=== PATIENT | female | born 1985 | race Caucasian/White ===

== ENCOUNTER 2019-07-17 09:06 | Emergency (ER) | payer BC ==
[2019-07-17 09:16] VITALS: BP 126/80; PULSE 81; TEMP 98.9
[2019-07-17 09:48] LABS: COLLECTION METHOD CLEAN CATCH
[2019-07-17 10:03] LABS: MUCOUS Present /lpf; PH 6 (5-8); URINE APPEARANCE Hazy; URINE BACTERIA Rare /hpf; URINE BILIRUBIN Negative (NEGATIVE); URINE BLOOD Negative (NEGATIVE); URINE COLOR Yellow; URINE GLUCOSE Negative (NEGATIVE); URINE KETONE Negative (NEGATIVE); URINE LEUKOCYTE ESTERASE 2+ (NEGATIVE); URINE NITRATE Negative (NEGATIVE); URINE PROTEIN(semi-quant) Negative (NEGATIVE); URINE RBC 0-2 /hpf; URINE UROBILINOGEN Negative (NEGATIVE)
[2019-07-17 10:21] LABS: BASO % 0.2 % (0.0-2.0); EOS # 0.1 (0.0-0.7); EOS % 1.3 % (0-4.0); GRAN # 6.1 (1.4-6.5); HEMATOCRIT 40.4 % (37.0-47.0); HEMOGLOBIN 12.5 g/dl (12.5-16.0); LYMPH # 1.4 (1.2-3.4); LYMPH % 17.4 % (20.0-51.0); MEAN CELL VOLUME 83 fl (80.0-100.0); MEAN CORPUSCULAR HEMOGLOBIN 26 pg (27.0-31.0); MEAN CORPUSCULAR HGB CONC 31 g/dl (33.0-37.0); MONO # 0.6 (0.1-0.6); MONO % 6.7 % (1.7-9.3); PLATELET COUNT 253 K/mm3 (130-400); RED BLOOD COUNT 4.85 M/mm3 (4.10-5.30)
[2019-07-17 10:37] LABS: ALBUMIN 4.1 gm/dL (3.5-5.0); BILIRUBIN,TOTAL 0.4 mg/dL (0.0-1.0); C-REACTIVE PROTEIN 1.1 mg/dL (0.0-0.9); CALCIUM 9.1 mg/dL (8.4-10.2); CREATININE, serum 0.67 (0.52-1.25); POTASSIUM 4.3 mmol/L (3.4-5.0); TOTAL PROTEIN 7.5 gm/dL (6.4-8.2)
[2019-07-17] MEDS ORDERED: CEPHALEXIN500 M1 PO (11:09)
== END 2019-07-17 11:35 | disposition home or self-care (01) ==
LOC: COL.ER 09:06
PROVIDERS: Emergency Medicine
DX: R10.11 Right upper quadrant pain (principal)
CPT/HCPCS: J1885

== ENCOUNTER 2020-06-01 18:20 | Emergency (ER) | payer BC ==
[~2020-06-01] VITALS: Ht 165.1 cm; Wt 134.1 kg
[~2020-06-01 18:20] MED LIST: CEPHALEXIN500 M1 PO
[2020-06-01 18:24] VITALS: TEMP 99.2
[2020-06-01 21:28] VITALS: BP 114/70; PULSE 78
== END 2020-06-01 21:28 | disposition home or self-care (01) ==
LOC: COL.ER 18:20
DX: O9A.212 Injury, poisoning and certain other consequences of external causes complicating pregnancy, second trimester (principal); S43.004A Unspecified dislocation of right shoulder joint, initial encounter; Z3A.21 21 weeks gestation of pregnancy; W01.0XXA Fall on same level from slipping, tripping and stumbling without subsequent striking against object, initial encounter; Y92.512 Supermarket, store or market as the place of occurrence of the external cause
CPT/HCPCS: J1170; J2704; J7030

== ENCOUNTER 2020-07-09 12:06 | Emergency (ER) | payer BC ==
[~2020-07-09] VITALS: Ht 165.1 cm; Wt 136.4 kg
[2020-07-09 12:15] VITALS: TEMP 97.8
[2020-07-09 12:57] LABS: ARTERIAL BLD GAS O2 SATURATION 89.5 % (92-100); ARTERIAL BLOOD GAS BASE EXCESS -2.8 (-2-2); ARTERIAL BLOOD GAS HCO3 20.1 meq/L (22-26); ARTERIAL BLOOD GAS PCO2 29.9 mmHg (35-45); ARTERIAL BLOOD GAS PO2 56.9 mmHg (80-100); ARTERIAL BLOOD GAS pH 7.45 (7.35-7.45)
[2020-07-09 13:28] LABS: BASO # 0.1 (0.0-0.2); BASO % 0.4 % (0.0-2.0); EOS # 0.2 (0.0-0.7); EOS % 1.3 % (0-4.0); GRAN # 13.2 (1.4-6.5); GRAN % 83.5 % (42.2-75.2); HEMATOCRIT 39.6 % (37.0-47.0); HEMOGLOBIN 12.4 g/dl (12.5-16.0); LYMPH # 1.4 (1.2-3.4); LYMPH % 8.6 % (20.0-51.0); MEAN CELL VOLUME 87 fl (80.0-100.0); MEAN CORPUSCULAR HEMOGLOBIN 27 pg (27.0-31.0); MEAN CORPUSCULAR HGB CONC 31 g/dl (33.0-37.0); MEAN PLATELET VOLUME 11.2 fl (7.4-10.4); MONO # 0.8 (0.1-0.6); MONO % 5.2 % (1.7-9.3); PLATELET COUNT 192 K/mm3 (130-400); RED BLOOD COUNT 4.56 M/mm3 (4.10-5.30); REDCELL DISTRIBUTION WIDTH-CV 15.1 % (11.5-14.5)
[2020-07-09 13:39] LABS: ALBUMIN 3.4 gm/dL (3.5-5.0); BILIRUBIN,TOTAL 0.4 mg/dL (0.0-1.0); C-REACTIVE PROTEIN 3.3 mg/dL (0.0-0.9); CALCIUM 8.3 mg/dL (8.4-10.2); CREATININE, serum 0.63 (0.52-1.25); POTASSIUM 4.3 mmol/L (3.4-5.0); TOTAL PROTEIN 6.6 gm/dL (6.4-8.2)
--- NOTE | 2020-07-09 14:08 | NUR ---
FHR strip done in ER. FHT difficult to trace due to maternal coughing and movement and maternal habitus. FHR audible at bedside more than tracing on strip. RN remains at bedisde for 38 mins. Baseline 145, minimal to moderate variablility, no accelerations or decelerations noted. Dr. Coker notified at 1359, see physician notification.
[2020-07-09 15:45] VITALS: BP 158/104; PULSE 104
== END 2020-07-09 15:45 | disposition short-term general hospital (02) ==
LOC: COL.ER 12:06
PROVIDERS: Nurse Practitioner
DX: O13.2 Gestational [pregnancy-induced] hypertension without significant proteinuria, second trimester (principal); O99.512 Diseases of the respiratory system complicating pregnancy, second trimester; R06.02 Shortness of breath; R09.02 Hypoxemia; R07.89 Other chest pain; Z3A.26 26 weeks gestation of pregnancy
CPT/HCPCS: J0702; J1940; J3475; J7050

== ENCOUNTER 2021-10-09 12:03 | Inpatient (IN) | payer MEDICAID ==
[2021-10-09] VITALS (37 sets, daily range): BP systolic 117–157; BP diastolic 63–97; PULSE 83–120; TEMP 97.8–99.5
[~2021-10-09] VITALS: Ht 165.1 cm; Wt 156.8 kg
--- NOTE | 2021-10-09 11:25 | NUR ---
1125-G4L3 patient of Dr. Castro direct admit to LR 2 with demise found in clinic. Andreina tearful, support provided by this RN. Eduardo changed into gown and Assessment complete. VSS. Dr. Castro updated on patient and orders recieved to admit and start IVF. 1138-Dr. Castro to patient room, discussed plan of care with patient.
[2021-10-09 12:38] LABS: BASO % 0.3 % (0.0-2.0); EOS # 0.1 K/mm3 (0.0-0.7); EOS % 1.5 % (0.0-4.0); GRAN # 6.9 K/mm3 (1.4-6.5); GRAN % 77.5 % (42.2-75.2); HEMATOCRIT 37.3 % (37.0-47.0); LYMPH # 1.3 K/mm3 (1.2-3.4); LYMPH % 14.6 % (20.0-51.0); MEAN CELL VOLUME 85 fl (80.0-100.0); MEAN CORPUSCULAR HEMOGLOBIN 27 pg (27-31); MEAN CORPUSCULAR HGB CONC 32 g/dl (33.0-37.0); MEAN PLATELET VOLUME 11.4 fl (7.4-10.4); MONO # 0.5 K/mm3 (0.1-0.6); MONO % 5.5 % (1.7-9.3); PLATELET COUNT 220 K/mm3 (130-400); RED BLOOD COUNT 4.41 M/mm3 (4.10-5.30); REDCELL DISTRIBUTION WIDTH-CV 14.7 % (11.5-14.5)
[2021-10-09 12:51] LABS: ALBUMIN 3.1 gm/dL (3.5-5.0); BILIRUBIN,TOTAL 0.3 mg/dL (0.2-1.2); CALCIUM 8.9 mg/dL (8.4-10.2); CREATININE, serum 0.63 mg/dL (0.57-1.11); TOTAL PROTEIN 6.6 gm/dL (6.2-8.1)
[2021-10-09] MEDS ORDERED: ASPIRIN 81M81 MG/TA2 PO (13:07)
[2021-10-09] MEDS ORDERED: NORMODYNE100 MG PO (13:07)
[2021-10-09] MEDS ORDERED: PRENATAL (13:08)
--- NOTE | 2021-10-09 13:40 | NUR ---
1340-SVE by 0-//H per . Order recieved to start pitocin per protocol. 1406-Pit started see EMAR.
--- NOTE | 2021-10-09 15:10 | NUR ---
1510-Patient sitting upright for epdural placement. 1517-Test dose administered by SUSSY Macdonald. Patient tolerated procedure well. Repositioned WL. Updated on safety and plan of care. Roles on unit and gives order to conintue to increase pitocin and she will return to place cervical ripening balloon. 1600-Odonnell catheter placed by this RN. Clear yellow urine return. Peric are provided. 1620- Roles to patient room for cervical ripening balloon. Patient placed in foot plates and semi fowlers. Graves speculum placed in vagina by MD, Single tooth tennicalum used by MD to grasp cervix. Panève ripening balloon advanced by MD and each balloon filled with 40ml NS. Patient tolerated procedure well. Ripening balloon to tension on left thigh per MD order. Patient repositioned WL and updated on plan of care.
--- NOTE | 2021-10-09 18:35 | NUR ---
AT BEDSIDE FOR REPORT WITH [facility]. THIS RN ASSUMING CARE. PLAN OF CARE DISCUSSED WITH PATIENT AND PATIENT IS AGREEABLE. TENSION APPLIED TO COOK BALLOON. PITOCIN GTT CONTINUES - MD [place] ON UNIT AND ORDERS TO CONTINUE TITRATING PITOCIN UP TO 30. VSS. CARE ONGOING.
--- NOTE | 2021-10-09 19:15 | NUR ---
NUCLEAR MEDICINE CHIEF TECHNOLOGIST AT BEDSIDE FOR BLESSING REQUESTED BY PATIENT.
--- NOTE | 2021-10-09 19:27 | NUR ---
Pst Specialist prayed and offered support with patient while spouse was in room.
--- NOTE | 2021-10-09 20:30 | NUR ---
ROLES,MD AT BEDSIDE. PLAN OF CARE REVIEWED. QUESTIONS ANSWERED. SVE PERFORMED BY MD. BALLOON REMAINS IN PLACE. CARE ONGOING.
[2021-10-10] VITALS (95 sets, daily range): BP systolic 105–165; BP diastolic 57–104; PULSE 76–108; TEMP 97.3–98.6
--- NOTE | 2021-10-10 07:00 | NUR ---
Roles at bedside, performs SVE with no change noted, cooks balloon remains in place with tension to left thigh. Plan of care reviewed.
--- NOTE | 2021-10-10 08:30 | NUR ---
Patient sits upright in bed, comfortable with epidural. Light breakfast provided but patient reports no desire to eat and is only able to eat a few bites.
--- NOTE | 2021-10-10 11:00 | NUR ---
Patient continues to rest in bed comfortable with epidural. Cooks balloon secured with tension to left thigh. Pitocin turned off at this time per orders. Plan of care reviewed with patient.
--- NOTE | 2021-10-10 12:40 | NUR ---
Cooks balloon checked and secured with tension to left thigh. Tape noted to be saturated with fluid and small amount of fluid noted between thighs. Patient reports feeling something "wet" in the last 10 minutes.
--- NOTE | 2021-10-10 13:05 | NUR ---
Roles on unit, updated on SROM at 1230. To patient room for SVE, no change noted. Plan of care reviewed.
--- NOTE | 2021-10-10 14:15 | NUR ---
Cytotec 100mg given PO per orders.
--- NOTE | 2021-10-10 15:15 | NUR ---
Moderate amount of fluid noted on pads, pads changed and pericare provided. Cooks balloon in place, tension applied and balloon secured to left thigh. Dr. Castro called and updated, orders to restart pitocin at 2mu per orders and protocol.
--- NOTE | 2021-10-10 15:30 | NUR ---
Pitocin started at 2mu per orders and protocol.
--- NOTE | 2021-10-10 17:00 | NUR ---
Plan of care reviewed with patient. Pitocin turned off per orders.
--- NOTE | 2021-10-10 17:55 | NUR ---
Dr. Waggoner at bedside, discusses plan of care with patient and spouse. Cooks balloon removed by Dr. Waggoner, KATHERINEE . Patient tolerates well.
[2021-10-11] VITALS (84 sets, daily range): BP systolic 105–182; BP diastolic 54–100; PULSE 73–130; TEMP 97.5–99.7
--- NOTE | 2021-10-11 08:55 | NUR ---
Dr. Castro at bedside, discusses plan of care with patient and spouse. SVE by Dr. Castro /-3, 200mcg placed vaginally by Dr. Castro at this time.
--- NOTE | 2021-10-11 11:00 | NUR ---
Patient visiting with family, comfortable with epidural. TOCO not tracing contractions, contractions difficult to palpate due to maternal habitus.
--- NOTE | 2021-10-11 12:20 | NUR ---
Cytotec placed vaginally per orders. Pericare and catheter care provided, linens changed.
--- NOTE | 2021-10-11 14:30 | NUR ---
IV to left hand infiltrated with LR infusing. IV removed.
--- NOTE | 2021-10-11 17:00 | NUR ---
Roles at bedside, discusses plan of care. SVE per Roles.
--- NOTE | 2021-10-11 19:00 | NUR ---
ADRIANNE remians unchanged. Plan of care reviewed and questions answered. 1903: called and updated on pts status. See physican notification. 1917: Tylenol given. Pitocin explained and educated pt on looking for abdomen pain. Pt verablized her understanding. When pitiocin was started RN found IV was infiltrated. IV DC'd. 1939: New IV started. 1944: Pitocin started at 100mus/hr per high dose pitocin protocol. Questions answered.
--- NOTE | 2021-10-11 20:49 | NUR ---
Pt called out stating "I had the baby." This RN to room. Infant in bed. Emotional support given to pt and spouse. Penny RN called to room as well. Pitocin turned off. 2049: called. See physican notification. Umbilical cord clamped and cut. to mothers chest. Cord entanglement around neck noted. 2099: at bedside. Pt tearful. Support given by provider. Pt assisted into footplates. Blas Almanzar. 2101: Pitocin restarted at 100mu/hr to help with placenta extraction per orders. 2110: Spontaneous delivery of intact placenta by . Pitocin increased to 333mu/hr. Pericare provided and plan of care explained to pt who verbalizes her understanding. Pt really wanting to discharge home tonight if possible. Orders received by provider is temp remains normal and BP okay she can discharge home later tonight when ready. Pt verbalized her understanding. Safety precautions explained. Call light within reach.
[2021-10-11] MEDS ORDERED: IBU800 M1 PO (21:20)
--- NOTE | 2021-10-11 22:25 | NUR ---
Drea Ogden here to bless and family.
--- NOTE | 2021-10-11 22:41 | NUR ---
Tree Faller prayed and offered support with patient and spouse. Tree Faller said a prayer over the child.
--- NOTE | 2021-10-11 22:48 | NUR ---
2248: Epidural catheter removed. When catheter removed there was puss/drainage that came with catheter. There also is a quarter size red/raised area around the epidural site. Area cleaned with alcohol and bandaid applied. 2253: Edie HI notified. See anesthesia records. 2301: notified. See physican notification.
--- NOTE | 2021-10-11 22:49 | NUR ---
Contacted [facility], spoke with Joyce. Referral #[id number]
--- NOTE | 2021-10-11 23:11 | NUR ---
Contacted [facility] at this time per patient request.
[2021-10-12] VITALS: BP 124/64; PULSE 112; TEMP 98.3
[2021-10-12 00:45] VITALS: BP 112/55; PULSE 94
[2021-10-12 03:00] VITALS: BP 129/88; PULSE 90; TEMP 97.9
--- NOTE | 2021-10-12 03:20 | NUR ---
Discharge instructions given to pt. Stressed importance of keeping epidural site clean with alcohol regularly. Stressed importance on watching for signs and symptoms of infection. Pt verbalized her understanding. Pt wheeled out by this RN and home with family.
== END 2021-10-12 03:20 | disposition home or self-care (01) | DRG 806 ==
LOC: LDR 12:03
PROVIDERS: ADMIT Obstetrics & Gynecology
PROC: 10E0XZZ Delivery of Products of Conception, External Approach (ICD-10-PCS; principal; 2021-10-11)
PROC: 3E0P7VZ Introduction of Hormone into Female Reproductive, Via Natural or Artificial Opening (ICD-10-PCS; 2021-10-11)
PROC: 3E033VJ Introduction of Other Hormone into Peripheral Vein, Percutaneous Approach (ICD-10-PCS; 2021-10-11)
DX: O36.4XX0 Maternal care for intrauterine death, not applicable or unspecified (principal); O10.92 Unspecified pre-existing hypertension complicating childbirth; Z37.1 Single stillbirth; O11.4 Pre-existing hypertension with pre-eclampsia, complicating childbirth; O99.214 Obesity complicating childbirth; E66.01 Morbid (severe) obesity due to excess calories; O99.344 Other mental disorders complicating childbirth; F43.10 Post-traumatic stress disorder, unspecified; O34.212 Maternal care for vertical scar from previous cesarean delivery; Z3A.21 21 weeks gestation of pregnancy
CPT/HCPCS: J0696; J2590; J2791; J7120